=== PATIENT | female | born 1960 | race Caucasian/White ===

== ENCOUNTER → 2018-10-24 | Outpatient (CLI) | payer OTHER ==
[~2018-10-24] VITALS: Ht 167.6 cm; Wt 84.4 kg
[~2018-10-24] MED LIST: BUSPAR30 MG PO; CELEBREX 200 M200 M1 PO; CITALOPRAM HBR40 MG PO; DILAUDID 4 MG TA4 M1 PO; FENTANYL PA50 MCG/HR TRANSDERM; IBUPROFEN 200200 M1 PO; LAMOTRIGINE200 MG PO; LYRICA 75 MG CA75 MG PO; LYRICA150 MG PO; MOBIC15 MG PO; MS CONTIN15 MG PO; MULTIVITAMINS1 EAC7 PO; OMEPRAZOLE 20 M20 M1 PO; OXYCODONE HCL15 MG PO; PARAFON FORTE500 MG PO; PHENTERMINE H37.5 M1 PO; PREDNISONE 10 M10 MG PO; STOOL SOFTENER100 MG PO; SUPER B COMPLE1 EAC2 PO; SUPER B COMPLE150 MG PO; TRAZODONE HCL100 MG PO; TYLENOL325 MG PO; VITAMINC500 PO; ZOCOR20 MG PO
--- NOTE | ~2018-10-24 | P ---
[facility] [place] [address] PROCEDURE REPORT Name: PASQUALE CHIU Room #: REG [facility]#: [id number] Admission: 10/24/18 Attend Phys: Tamir Overton Discharge: Date of : 60 Report #: [id number] THIS REPORT FOR: //name// CC: Tamir ROSS Physician staff DATE OF SERVICE: 10/24/2018 PROCEDURE PERFORMED: Upper endoscopy with biopsies and esophageal dilation. HISTORY OF PRESENT ILLNESS: The patient is a 58-year-old female with a history of gastroesophageal reflux disease and Workman esophagus as well as dysphagia. She underwent an upper endoscopy by myself in April of last year as well as previous years. Biopsies at that time showed Workman esophagus, no dysplasia. She had grade C erosive esophagitis and since that time has been taking daily PPI therapy. She denies any heartburn symptoms, but she does complain of ongoing dysphagia. Plan is for dilation today. DESCRIPTION OF PROCEDURE: The risks and benefits of the procedure were explained to the patient, those risks including but not limited to bleeding, perforation, the risk of sedation. She understood these risks and gave informed consent. Sedation was given using propofol per Anesthesia. Next, using a standard Olympus upper endoscope, the scope was placed in the patient's mouth and advanced under direct vision through the esophagus, stomach and into the second portion of the duodenum. The larynx was normal in appearance. The upper and mid esophagus was normal in appearance. In the distal esophagus, a short segment of Workman's was again noted. There was one area with some mild erythema. I did obtain some biopsies. There was also evidence of grade B erosive esophagitis and one linear ulcer. Upon entering the stomach, there was no obvious stricture noted. Upon entering the stomach, a small hiatal hernia was again noted. Overall, the gastric mucosa was normal. The pylorus was normal and patent. The duodenal bulb, first and second portion were all normal. The scope was then brought back up into the patient's stomach, and a Savary guidewire was inserted through the scope, leaving the guidewire in place as the scope was then withdrawn. Next, a 51-Occitan dilation of the esophagus was performed without difficulty. The wire and dilator were removed. The scope was reintroduced into the patient's stomach. There was no evidence of mucosal tear after dilation. At this point, the scope was then withdrawn and the procedure terminated. The patient tolerated the procedure well. IMPRESSION: 1. Grade B erosive esophagitis despite being on daily PPI therapy. 2. Workman esophagus. 3. Hiatal hernia. [address] [address] PROCEDURE REPORT Name: PASQUALE CHIU Room #: REG [facility]#: [id number] Admission: 10/24/18 Attend Phys: Tamir Overton Discharge: Date of : 60 Report #: [id number] RECOMMENDATIONS: 1. Await biopsy results. 2. Recommend b.i.d. PPI therapy. 3. Observe the patient post-dilation. Thank you for allowing me to participate in her care. By: 0940 Tamir Wilcox MD /nt
--- NOTE | 2018-10-25 16:06 | PATH ---
[facility] [address] [place] [address] PATHOLOGY RPT PROCEDURE Name: PASQUALE CHIU Heber Room #: REG [facility]#: [id number] Admission: 10/24/18 Date of : 60 Discharge: Report #: [id number] Path Case #: [id number] [facility] Accession Number: [id number] . 01 Material submitted: . BX DISTAL ESOPHAGUS HX OF BARRETTS . 01 Clinical history: . Pre-OP DX: Dysphagia, Hx Workman's Post-OP DX: Esophagitis, gastritis, hiatal hernia, Hx of Workman's . 02 Diagnosis: Gastroesophageal mucosa, distal esophagus rule out Workman's, endoscopic biopsy: - Focal specialized columnar epithelium (gastric cardia-type mucosa) with intestinal metaplasia, compatible with Workman's metaplasia. - Negative for dysplasia. - Focal squamous mucosa with mild esophagitis. . (IUV:mml; 10/25/2018) QLM/10/25/2018 . 02 Comment: The above diagnosis of Workman's esophagus is made due to presence of intestinal metaplasia and with the assumption that the biopsies were obtained from the columnar mucosa in the distal esophagus located at least 1 cm proximal to the top of the gastric folds as per the 2016 ACG guidelines. . (IUV:mml; 10/25/2018) . 02 Electronically signed: . Fani Anton MD, Pathologist NPI- [id number] . 01 Gross description: . Received in formalin labeled "Pasquale Chiu, BX distal esophagus, Hx of Workman's," are 3 segments of hdz soft tissue measuring 0.8 x 0.6 x 0.3 cm in aggregate dimensions and ranging from 0.4 to 0.5 cm in maximum dimension. The specimen is submitted entirely in cassette A1. (TSD; 10/24/2018) TOB/TOB . 02 Pathologist provided ICD-10: K22.70, K20.9 . 02 [place] [address] PATHOLOGY RPT PROCEDURE Name: PASQUALE CHIU Heber Room #: REG [facility]#: [id number] Admission: 10/24/18 Date of : 60 Discharge: Report #: [id number] Path Case #: [id number] Specimen Comment: A courtesy copy of this report has been sent to Specimen Comment: [phone], , . Specimen Comment: Report sent to / DR ROSS Performed at: [address], [place], [place] [id number] MD Elliott Grimes MD Phone: [phone] Performed at: [address] [id number] MD Fani Anton MD Phone: [phone]
== END | disposition home or self-care (01) ==
LOC: GI 07:00
DX: R13.10 Dysphagia, unspecified (principal); K22.70 Barrett's esophagus without dysplasia; K44.9 Diaphragmatic hernia without obstruction or gangrene; K20.8 Other esophagitis; K31.89 Other diseases of stomach and duodenum; F41.9 Anxiety disorder, unspecified; F32.9 Major depressive disorder, single episode, unspecified; G47.30 Sleep apnea, unspecified; E78.5 Hyperlipidemia, unspecified; K21.9 Gastro-esophageal reflux disease without esophagitis; F17.210 Nicotine dependence, cigarettes, uncomplicated; Z88.0 Allergy status to penicillin; Z79.899 Other long term (current) drug therapy; Z98.890 Other specified postprocedural states; Z90.49 Acquired absence of other specified parts of digestive tract
CPT/HCPCS: 62110; 62900

== ENCOUNTER → 2021-01-05 | Outpatient (CLI) | payer OTHER ==
[~2021-01-05] MED LIST changes: +CELEBREX 200 M200 MG PO; +DESVENLAFAXINE50 MG PO; +KLONOPIN0.5 MG PO; +LIPITOR40 MG PO; +NEURONTIN300 MG PO; +ROXICODONE15 M1 PO; +SPIRIVA INH; +TRELEGY ELLIPT1 EACH INH
== END ==
LOC: LAB 11:17
PROVIDERS: ATTEND Specialist
DX: Z01.812 Encounter for preprocedural laboratory examination (principal); Z20.822 Contact with and (suspected) exposure to COVID-19

== ENCOUNTER → 2021-01-08 | Outpatient (CLI) | payer OTHER ==
[~2021-01-08] VITALS: Ht 167.6 cm; Wt 90.7 kg
[~2021-01-08] MED LIST changes: +TESSALON PERLE100 MG PO
--- NOTE | 2021-01-10 14:04 | P ---
[facility] [address] PROCEDURE REPORT Name: PASQUALE CHIU Room #: REG [facility]#: [id number] Admission: 01/08/21 Attend Phys: Tamir Overton Discharge: Date of : 60 Report #: [id number] THIS REPORT FOR: cc: CURLY CHRISTIAN JR, MD Physician not on staff Tamir Wilcox MD ~ DATE OF SERVICE: 01/08/2021 PROCEDURE PERFORMED: Upper endoscopy with biopsies and esophageal dilation. HISTORY OF PRESENT ILLNESS: The patient is a 60-year-old female with a long history of gastroesophageal reflux disease as well as Workman's esophagus, has recurrent dysphagia. Last upper endoscopy with biopsies and dilation was performed in 2019. Dilation was helpful. She now has recurrent dysphagia. She is currently taking Prilosec on a daily basis. Denies any heartburn symptoms. Denies any nausea or vomiting. DESCRIPTION OF PROCEDURE: The risks and benefits of the procedure were explained to the patient, those risks including but not limited to bleeding, perforation and the risk of sedation. She understood these risks and gave informed consent. Sedation was given using propofol per anesthesia. Next, using a standard Olympus upper endoscope, the scope was placed in the patient's mouth and advanced under direct vision through the esophagus, stomach and into the second portion of the duodenum. The larynx was normal in appearance. The upper and mid esophagus was normal. In the distal esophagus, a short segment of Workman's was noted. Biopsies obtained. No evidence of esophagitis. Overall, the gastric mucosa was normal. The pylorus was normal and patent. The duodenal bulb, first and second portion were all normal. The scope was then brought back up into the patient's stomach and a Savary guidewire was inserted through the scope as the scope was then withdrawn. Next, a 51-Guatemalan Savary dilation of the esophagus was then performed without difficulty. The wire and dilator were removed. The scope was reintroduced into the patient's stomach. There was no evidence of mucosal tear after dilation. The scope was then withdrawn and the procedure terminated. The patient tolerated the procedure well. IMPRESSION: 1. Short segment Workman's esophagus. 2. Otherwise, normal upper endoscopy. RECOMMENDATIONS: 1. Await biopsy results. 2. Continue daily PPI therapy. 3. Observe the patient post-dilation. [address] [address] PROCEDURE REPORT Name: APSQUALE CHIU Room #: REG [facility]#: [id number] Admission: 01/08/21 Attend Phys: Tamir Overton Discharge: Date of : 60 Report #: [id number] Thank you for allowing me to participate in her care. <ELECTRONICALLY SIGNED> By: Tamir Wilcox MD 01/10/21 1404 1030 1413 Tamir Wilcox MD /nt
--- NOTE | 2021-01-11 19:06 | PATH ---
[facility] [address] [place] [address] PATHOLOGY RPT PROCEDURE Name: PASQUALE CHIU Room #: REG [facility]#: [id number] Admission: 01/08/21 Date of : 60 Discharge: Report #: [id number] Path Case #: [id number] [facility] Accession Number: [id number] . 01 Material submitted: . esophagus - BIOPSY ESOPHAGUS DISTAL PHARYNX. Modifiers: distal . 01 Clinical history: . EGD . 02 Diagnosis: Gastroesophageal mucosa, esophagus distal, endoscopic biopsy: - Specialized columnar (gastric cardia-type) mucosa with intestinal metaplasia consistent with Workman's metaplasia. - Negative for dysplasia. - Focal squamous mucosa showing mild esophagitis. (IUV:rough rice grader; 01/11/2021) MBR 01/11/2021 1605 Local . 02 Comment: The above diagnosis of Workman's esophagus is made due to presence of intestinal metaplasia and with the assumption that the biopsies were obtained from the columnar mucosa in the distal esophagus located at least 1 cm proximal to the top of the gastric folds as per the 2016 ACG guidelines. (IUV:rough rice grader; 01/11/2021) . 02 Electronically signed: . Fani Anton MD, Pathologist NPI- [id number] . 01 Gross description: . Received in formalin labeled "Pasquale Chiu, BX esophagus distal pharynx" are multiple hdz-brown soft tissue fragments measuring in aggregate 0.6 x 0.5 x 0.1 cm. The specimen is submitted entirely in A1. ([facility] [place] 01/10/[place]21[place] [facility] 01/10/2021 1141 Local . 02 Pathologist provided ICD-10: K22.70, K20.90 . 02 CPT . 514646 Specimen Comment: A courtesy copy of this report has been sent to [phone], [phone] Specimen Comment: [phone] Specimen Comment: Report sent to / DR CHRISTIAN [address] [address] PATHOLOGY RPT PROCEDURE Name: PASQUALE CHIU Room #: REG [facility]#: [id number] Admission: 01/08/21 Date of : 60 Discharge: Report #: [id number] Path Case #: [id number] Performed at: [address] [place] [address], [place], [place] [id number] MD Delgado Reinoso MD Phone: [phone] Performed at: [address] [place] [address] [id number] MD Fani Anton MD Phone: [phone]
== END | disposition home or self-care (01) ==
LOC: GI 07:09
PROVIDERS: ATTEND Specialist
DX: R13.10 Dysphagia, unspecified (principal); K22.70 Barrett's esophagus without dysplasia; K21.00 Gastro-esophageal reflux disease with esophagitis, without bleeding; E78.5 Hyperlipidemia, unspecified; J43.9 Emphysema, unspecified; F32.9 Major depressive disorder, single episode, unspecified; F41.9 Anxiety disorder, unspecified; G47.30 Sleep apnea, unspecified; F17.210 Nicotine dependence, cigarettes, uncomplicated; Z98.890 Other specified postprocedural states; Z79.899 Other long term (current) drug therapy; Z90.49 Acquired absence of other specified parts of digestive tract; Z88.0 Allergy status to penicillin
CPT/HCPCS: 62110; 62900